=== PATIENT | female | born 1985 | race Caucasian/White ===

== ENCOUNTER → 2021-12-21 | Day surgery (SDC) | payer OTHER, BC ==
[~2021-12-21] MED LIST: EPINEPHrine 1 MG/ML 30 ML MDV IRR SCH; EPINEPHrine 1 MG/ML SDV ONE; Lactated Ringers 1,000 ML IV SCH; Lidocaine 1%/Sod Bicarbonate in NS 8.4% 1 ML Syringe IDERM PRN; Ropivacaine 0.5% 5 MG/ML 30 ML SDV ONE; Sodium Chloride 0.9% 10 ML Syringe FLUSH PRN; Sodium Chloride 0.9% 10 ML Syringe FLUSH SCH
[2021-12-21 08:31] VITALS: BP 158/92; PULSE 113
== END | disposition home or self-care (01) ==
LOC: JD.SDS 08:13
PROVIDERS: ATTEND Orthopaedic Surgery
DX: R00.0 Tachycardia, unspecified (principal); Z53.09 Procedure and treatment not carried out because of other contraindication; E03.9 Hypothyroidism, unspecified
CPT/HCPCS: 81025; J0171; J2795; J7120

== ENCOUNTER 2025-05-18 13:34 | Emergency (ER) | payer BC, OTHER ==
[2025-05-18] MEDS ORDERED: Sodium Chloride 0.9% 10 ML Syringe FLUSH PRN ×2 (13:58→14:14)
[2025-05-18] MEDS: Ondansetron 4 MG/2 ML SDV IVPUSH ONE (14:57)
[2025-05-18 15:03] LABS: BASOPHILS ABSOLUTE AUTO 0.0 K/mm3 (0.0-0.2); BASOPHILS PERCENT AUTO 0.3 % (0.0-1.0); EOSINOPHILS ABSOLUTE AUTO 0.1 K/mm3 (0.0-0.4); EOSINOPHILS PERCENT AUTO 0.7 % (0.0-6.0); IMMATURE GRAN ABSOLUTE AUTO 0.03 K/mm3 (0.00-0.05); IMMATURE GRAN PERCENT AUTO 0.4 % (0.0-0.4); LYMPHOCYTES ABSOLUTE AUTO 1.1 K/mm3 (1.0-4.8); LYMPHOCYTES PERCENT AUTO 15.7 % (24.0-44.0); MEAN PLATELET VOLUME 12.1 fl (9.4-12.3); MONOCYTES ABSOLUTE AUTO 0.4 K/mm3 (0.0-0.8); MONOCYTES PERCENT AUTO 5.9 % (0.0-8.0); NEUTROPHILS ABSOLUTE AUTO 5.4 K/mm3 (1.8-7.7); NEUTROPHILS PERCENT AUTO 77.0 % (41.0-71.0); NRBC ABSOLUTE 0.00 (0.00-0.02); NRBC PERCENT 0.0 % (0.0-0.2); PLATELET COUNT,PLT 234 K/mm3 (150-400); RED BLOOD CELL COUNT 4.94 M/mm3 (4.10-5.30); WHITE BLOOD CELL COUNT,WBC 7.06 K/mm3 (3.9-11.3)
[2025-05-18 15:26] LABS: LACTIC ACID 1.8 mmol/L (0.4-2.0)
[2025-05-18 15:26] LABS: APPEARANCE,URINE CLEAR (Clear); GLUCOSE,URINE NEGATIVE (Negative); OCCULT BLOOD,URINE NEGATIVE (Negative)
[2025-05-18] MEDS: Sodium Chloride 0.9% 10 ML Syringe FLUSH ONE (15:31)
[2025-05-18 15:32] LABS: A/G RATIO 0.8 (1-2); ALANINE AMINOTRANSFERASE,ALT 26.0 U/L (14-59); ASPARTATE AMNIOTRANSFERASE,AST 17.0 U/L (15-37); BILIRUBIN TOTAL 0.3 mg/dL (0.2-1.0); BLOOD UREA NITROGEN,BUN 8.0 mg/dL (7-18); CARBON DIOXIDE,CO2 25.0 mEq/L (21-32); CHLORIDE,CL 101.0 mEq/L (98-107); CREATININE 1.0 mg/dL (0.55-1.02); EST CRCL DRUG DOSING (CG) 71.27 mL/min; ESTIMATED GFR 72.0 mL/min (>60); GLUCOSE RANDOM 176.0 mg/dL (70-99); POTASSIUM,K 3.3 mEq/L (3.5-5.1); PROTEIN TOTAL,TP 7.9 g/dl (6.4-8.2); SODIUM,NA 139.0 mEq/L (136-145)
[2025-05-18] MEDS: Iopamidol 612 MG/ML 100 ML Bottle IVPUSH ONE (15:32)
[2025-05-18 16:01] LABS: TSH 0.287 uIU/mL (0.358-3.74)
[2025-05-18 17:37] LABS: T4 FREE 1.23 ng/dL (0.76-1.46)
[2025-05-18] MEDS: Potassium Chloride 20 MEQ Tab.ER PO ONE (19:08)
[2025-05-18 19:30] VITALS: BP 124/74; PULSE 110
== END 2025-05-18 19:22 | disposition home or self-care (01) ==
LOC: JD.ED 13:34
DX: E87.6 Hypokalemia (principal); R73.9 Hyperglycemia, unspecified; R82.90 Unspecified abnormal findings in urine; E03.9 Hypothyroidism, unspecified; Z79.890 Hormone replacement therapy; Z79.899 Other long term (current) drug therapy
CPT/HCPCS: 36415; 71045; 74177; 80053; 81001; 83605; 83690; 83735; 84439; 84443; 84703; 85025; 87040; 93005; 96361; 96374; 96375; 99285; A9270; J0696; J2405; J7030; Q9967; 93010; 99284